=== PATIENT | male | born 1965 | race Caucasian/White ===

== ENCOUNTER 2023-08-05 13:48 | Inpatient (IN) | payer SELFPAY ==
[~2023-08-05] VITALS: Ht 188 cm; Wt 168.8 kg
[2023-08-05] MEDS ORDERED: SODIUM CHLORIDE 0.9% 1,000 ML IV ONE (13:55)
[2023-08-05] MEDS ORDERED: ACETAMINOPHEN 325 MG TAB PO ONE (14:00)
[2023-08-05] MEDS ORDERED: SODIUM CHLORIDE 0.9% 1,000 ML IV SCH (14:05)
[2023-08-05 14:06] VITALS: BP 104/67
[2023-08-05 14:18] LABS: HEMATOCRIT 42.2 % (42.0-52.0); MEAN CELL VOLUME 96.3 fl (80.0-94.0); MEAN CORPUSCULAR HGB 34.2 pg (27.0-31.0); MEAN CORPUSCULAR HGB CONC 35.5 g/dl (33.0-37.0); MEAN PLATELET VOLUME 10.9 fl (9.6-12.3); PLATELET COUNT AUTOMATED 95 10*3/uL (130-400); RED BLOOD COUNT 4.38 10*6/uL (4.50-5.90); RED CELL DISTRI WIDTH 12.2 % (0-14.5); WHITE BLOOD COUNT 10.1 10*3/uL (4.8-10.8)
[2023-08-05 14:29] LABS: MANUAL DIFF REFLEX YES
[2023-08-05 14:43] LABS: PLATELET SUFFICIENCY LOW (NORMAL); TOTAL CELLS COUNTED 100 #CELLS
[2023-08-05 14:44] LABS: BURR CELLS FEW
[2023-08-05 14:47] LABS: POTASSIUM 4.1 mmol/L (3.4-5.1)
[2023-08-05] MEDS ORDERED: INSULIN REGULAR, HUMAN 1 UNIT/0.01 ML IV ONE (15:00)
[2023-08-05] MEDS ORDERED: MAGNESIUM SULFATE 50 ML IV ONE (15:10)
[2023-08-05] MEDS ORDERED: Ceftriaxone Sodium 1 GM/10 ML SYR IV ONE (15:15)
[2023-08-05] MEDS ORDERED: Vancomycin Hydrochloride 250 ML IV ONE (15:15)
[2023-08-05] MEDS ORDERED: Piperacillin Sodium/Tazobact 100 ML IV ONE (15:30)
[2023-08-05 16:02] VITALS: BP 110/52
[2023-08-05] MEDS ORDERED: INSULIN REGULAR IN 0.9 % NACL 100 ML IV SCH (16:20)
[2023-08-05] MEDS ORDERED: Acetaminophen/Hydrocodone 5 MG/325 MG TABLET PO PRN (16:20)
[2023-08-05] MEDS ORDERED: ACETAMINOPHEN 325 MG TAB PO PRN (16:20)
[2023-08-05] MEDS ORDERED: Ondansetron Hydrochloride 4 MG/2 ML VIAL IV PRN (16:20)
[2023-08-05] MEDS ORDERED: Thiamine 200 MG/2 ML VIAL IV ONE (16:30)
[2023-08-05] MEDS ORDERED: SODIUM CHLORIDE 0.9% 500 ML IV SCH (17:15)
[2023-08-05] MEDS ORDERED: DEXTROSE 5% SALINE 0.9% 1,000 ML IV SCH (17:15)
[2023-08-05 17:30] LABS: ABG BASE EXCESS -6.1 mmol/L (-2.0-2.0); ARTERIAL BLOOD GAS PH 7.386 (7.35-7.45)
[2023-08-05 17:31] LABS: POTASSIUM 3.5 mmol/L (3.4-5.1); TOTAL PROTEIN 6.2 gm/dL (6.0-8.0)
[2023-08-05] MEDS ORDERED: Cefepime Hydrochloride 2 GM in SODIUM CHLORIDE 0.9% 50 ML IV SCH (18:00)
[2023-08-05 18:49] VITALS: BP 109/46
[2023-08-05 19:00] VITALS: BP 115/63
[2023-08-05 19:19] LABS: BILIRUBIN Negative (Negative); BLOOD 3+ (Negative); CLARITY Cloudy (Clear); COLOR Yellow (Yellow); GLUCOSE 3+ (Negative); KETONE Negative (Negative); LEUKO ESTERASE Negative (Negative); NITRITE Negative (Negative); PH 5.5 (4.5-8.0); SPECIFIC GRAVITY >= 1.030 (1.001-1.030)
[2023-08-05 19:27] LABS: URINE AMPHETAMINES Negative (1000ng/ml); URINE BARBITURATES Negative (200ng/ml); URINE BENZODIAZEPINES Negative (200ng/ml); URINE CANNABINOIDS (THC) Negative (50ng/ml); URINE COCAINE Negative (300ng/ml); URINE METHADONE Negative (300ng/ml); URINE OPIATES Negative (300ng/ml); URINE PHENCYCLIDINE Negative (25ng/ml)
[2023-08-05 19:29] LABS: BACTERIA 2+
[2023-08-05 20:00] VITALS: BP 105/52
[2023-08-05] MEDS ORDERED: SODIUM CHLORIDE 0.9% IV SCH ×2 (20:00→22:05)
[2023-08-05] MEDS ORDERED: AMPICILLIN SODIUM IV SCH (20:00)
[2023-08-05] MEDS ORDERED: METFORMIN850 MG PO (20:20)
[2023-08-05 21:00] VITALS: BP 101/51
[2023-08-05 21:20] LABS: POTASSIUM 3.3 mmol/L (3.4-5.1)
[2023-08-05] MEDS ORDERED: IBUPROFEN 400 MG TAB PO PRN (21:20)
[2023-08-05] MEDS ORDERED: POTASSIUM CHLORIDE 20 MEQ TAB PO PRN (21:30)
[2023-08-05] MEDS ORDERED: POTASSIUM CHLORIDE 20 MEQ TAB PO SCH (21:30)
[2023-08-05] MEDS ORDERED: HEPARIN SODIUM 5,000 UNIT/ML VIAL SC SCH (22:00)
[2023-08-05] MEDS ORDERED: HUMAN IV SCH (22:05)
[2023-08-05] MEDS ORDERED: INSULIN REGULAR IV SCH (22:05)
[2023-08-06] VITALS: BP 97/43
[2023-08-06 01:24] LABS: POTASSIUM 3.6 mmol/L (3.4-5.1)
[2023-08-06 04:00] VITALS: BP 108/62
[2023-08-06] MEDS ORDERED: VANCOMYCIN/WATER FOR INJ (PEG) 350 ML IV SCH (04:00)
[2023-08-06 05:32] LABS: FREE T4 0.56 ng/dl (0.89-1.76); POTASSIUM 3.9 mmol/L (3.4-5.1); TOTAL PROTEIN 6.4 gm/dL (6.0-8.0)
[2023-08-06 06:11] LABS: HEMATOCRIT 40.4 % (42.0-52.0); MEAN CELL VOLUME 97.1 fl (80.0-94.0); MEAN CORPUSCULAR HGB 33.9 pg (27.0-31.0); MEAN CORPUSCULAR HGB CONC 34.9 g/dl (33.0-37.0); MEAN PLATELET VOLUME 10.8 fl (9.6-12.3); PLATELET COUNT AUTOMATED 79 10*3/uL (130-400); RED BLOOD COUNT 4.16 10*6/uL (4.50-5.90); RED CELL DISTRI WIDTH 12.7 % (0-14.5); WHITE BLOOD COUNT 9.2 10*3/uL (4.8-10.8)
[2023-08-06 07:27] LABS: MANUAL DIFF REFLEX YES
[2023-08-06 07:35] LABS: ACANTHOCYTES FEW; BURR CELLS MODERATE; PLATELET SUFFICIENCY LOW (NORMAL); SCHISTOCYTES FEW; TOTAL CELLS COUNTED 100 #CELLS
[2023-08-06 07:36] LABS: TOXIC GRANULATION SLIGHT; VACUOLATION OF NEUTROPHILS MODERATE
[2023-08-06 08:00] VITALS: BP 110/53
[2023-08-06] MEDS ORDERED: MAGNESIUM SULFATE 50 ML IV ONE (09:20)
[2023-08-06] MEDS ORDERED: Phosphorus/Potassium 1.45 GM PACKET PO SCH (09:25)
[2023-08-06] MEDS ORDERED: ASPIRIN ENTERIC COATED 81 MG TAB PO SCH (10:00)
[2023-08-06 10:25] LABS: POTASSIUM 3.9 mmol/L (3.4-5.1)
[2023-08-06 12:00] VITALS: BP 92/57
[2023-08-06] MEDS ORDERED: DEXTROSE 10 % IN WATER 250 ML IV PRN (13:00)
[2023-08-06] MEDS ORDERED: SODIUM CHLORIDE 0.9% 1,000 ML IV ONE (15:00)
[2023-08-06 16:00] VITALS: BP 101/52
[2023-08-06] MEDS ORDERED: INSULIN LISPRO 1 UNIT/0.01 ML SQ SCH (16:30)
[2023-08-06 20:00] VITALS: BP 112/52
[2023-08-06] MEDS ORDERED: Insulin Glargine, Recombinan 1 UNIT/0.01 ML SC SCH (22:00)
[2023-08-06] MEDS ORDERED: ATORVASTATIN CALCIUM 40 MG TABLET PO SCH (22:00)
[2023-08-07] VITALS: BP 110/78
[2023-08-07] MEDS ORDERED: ALGINATE DRESSING/CME-CELL 4X4 1 EACH BANDAGE T ONE (00:38)
[2023-08-07] MEDS ORDERED: FOAM BANDAGE 5X5 T ONE (00:38)
[2023-08-07] MEDS ORDERED: LEPTOSPERMUM HONEY 0.5 OZ TUBE T ONE (00:39)
[2023-08-07 04:00] VITALS: BP 125/78
[2023-08-07 04:59] LABS: POTASSIUM 3.5 mmol/L (3.4-5.1)
[2023-08-07 06:08] LABS: HEMATOCRIT 37.5 % (42.0-52.0); MEAN CELL VOLUME 96.4 fl (80.0-94.0); MEAN CORPUSCULAR HGB 35.2 pg (27.0-31.0); MEAN CORPUSCULAR HGB CONC 36.5 g/dl (33.0-37.0); MEAN PLATELET VOLUME 12.1 fl (9.6-12.3); PLATELET COUNT AUTOMATED 77 10*3/uL (130-400); RED BLOOD COUNT 3.89 10*6/uL (4.50-5.90); RED CELL DISTRI WIDTH 13.3 % (0-14.5); WHITE BLOOD COUNT 9.4 10*3/uL (4.8-10.8)
[2023-08-07 06:09] LABS: MANUAL DIFF REFLEX YES
[2023-08-07 06:56] LABS: TOTAL CELLS COUNTED 100 #CELLS
[2023-08-07 06:57] LABS: ACANTHOCYTES FEW; BURR CELLS MODERATE; PLATELET SUFFICIENCY LOW (NORMAL)
[2023-08-07 06:58] LABS: TOXIC GRANULATION SLIGHT; VACUOLATION OF NEUTROPHILS SLIGHT
[2023-08-07 08:00] VITALS: BP 87/54
[2023-08-07] MEDS ORDERED: Thiamine 200 MG/2 ML VIAL IV SCH (10:00)
[2023-08-07] MEDS ORDERED: Metoprolol Tartrate 5 MG/5 ML VIAL IV ONE (10:50)
[2023-08-07] MEDS ORDERED: DIGOXIN 500 MCG/2 ML AMP IV ONE (11:05)
[2023-08-07] MEDS ORDERED: METOPROLOL SUCCINATE XR 25 MG TAB PO SCH (11:05)
[2023-08-07] MEDS ORDERED: POTASSIUM CHLORIDE 20 MEQ TAB PO ONE (11:05)
[2023-08-07 11:17] LABS: URINE CREATININE RANDOM 90.76 mg/dL
[2023-08-07 12:00] VITALS: BP 100/61
[2023-08-07 16:00] VITALS: BP 122/72
[2023-08-07] MEDS ORDERED: RIVAROXABAN 15 MG TAB PO SCH (18:00)
[2023-08-07 20:00] VITALS: BP 124/82
[2023-08-07] MEDS ORDERED: Insulin Glargine, Recombinan 1 UNIT/0.01 ML SC SCH (22:00)
[2023-08-08] VITALS: BP 110/71
[2023-08-08 04:00] VITALS: BP 129/86
[2023-08-08 06:34] LABS: HEMATOCRIT 40.2 % (42.0-52.0); MEAN CORPUSCULAR HGB 33.7 pg (27.0-31.0); MEAN CORPUSCULAR HGB CONC 34.1 g/dl (33.0-37.0); MEAN PLATELET VOLUME 12.6 fl (9.6-12.3); PLATELET COUNT AUTOMATED 84 10*3/uL (130-400); RED BLOOD COUNT 4.06 10*6/uL (4.50-5.90); RED CELL DISTRI WIDTH 13.2 % (0-14.5); WHITE BLOOD COUNT 11.5 10*3/uL (4.8-10.8)
[2023-08-08 06:39] LABS: MANUAL DIFF REFLEX YES
[2023-08-08 07:43] LABS: ATYPICAL LYMPHS 2 % (0-0); BURR CELLS MODERATE; PLATELET SUFFICIENCY LOW (NORMAL); POLYCHROMASIA SLIGHT; TOTAL CELLS COUNTED 100 #CELLS
[2023-08-08 08:00] VITALS: BP 121/92
[2023-08-08 12:00] VITALS: BP 121/82
[2023-08-08] MEDS ORDERED: Cefepime Hydrochloride 2 GM in SODIUM CHLORIDE 0.9% 50 ML IV SCH (14:00)
[2023-08-08 20:00] VITALS: BP 99/61
[2023-08-08 21:45] VITALS: BP 123/76
[2023-08-08] MEDS ORDERED: METOPROLOL SUCCINATE XR 25 MG TAB PO SCH (22:00)
[2023-08-09] VITALS: BP 120/79
[2023-08-09] MEDS ORDERED: SODIUM CHLORIDE 0.9% 500 ML BAG IV ONE (07:26)
[2023-08-09] MEDS ORDERED: Vancomycin Hydrochloride 1,000 MG/250 ML BAG IV ONE (07:26)
[2023-08-09] MEDS ORDERED: Vancomycin Hydrochloride 500 MG VIAL IV ONE (07:26)
[2023-08-09 08:00] VITALS: BP 117/77
[2023-08-09 09:13] LABS: HEMATOCRIT 40.3 % (42.0-52.0); MEAN CELL VOLUME 96.9 fl (80.0-94.0); MEAN CORPUSCULAR HGB 33.9 pg (27.0-31.0); MEAN PLATELET VOLUME 11.4 fl (9.6-12.3); PLATELET COUNT AUTOMATED 108 10*3/uL (130-400); RED BLOOD COUNT 4.16 10*6/uL (4.50-5.90); RED CELL DISTRI WIDTH 13.4 % (0-14.5); WHITE BLOOD COUNT 10.1 10*3/uL (4.8-10.8)
[2023-08-09 09:43] LABS: MANUAL DIFF REFLEX YES
[2023-08-09 09:58] LABS: BUN 21 mg/dl (9-23); CHLORIDE 104 mmol/L (98-107); POTASSIUM 3.5 mmol/L (3.4-5.1)
[2023-08-09 10:02] LABS: BASOPHILS 1 % (0-1); POLYCHROMASIA SLIGHT; TOTAL CELLS COUNTED 100 #CELLS; TOXIC GRANULATION SLIGHT; VACUOLATION OF NEUTROPHILS SLIGHT
[2023-08-09 10:03] LABS: BURR CELLS FEW; PLATELET SUFFICIENCY LOW (NORMAL); ROULEAUX SLIGHT
[2023-08-09 12:00] VITALS: BP 107/59
[2023-08-09] MEDS ORDERED: HUMALOG100 UNIT/1 SC (13:53)
[2023-08-09] MEDS ORDERED: ATORVASTATIN CA40 M1 PO (13:53)
[2023-08-09] MEDS ORDERED: XARELTO20 M1 PO (13:53)
[2023-08-09] MEDS ORDERED: LANTUS100 UNIT/1 SC (13:53)
[2023-08-09] MEDS ORDERED: METOPROLOL SUCC25 M2 PO (13:53)
[2023-08-09] MEDS ORDERED: OMNICEF300 MG PO (13:55)
== END 2023-08-09 17:11 | disposition home or self-care (01) | DRG 871 ==
LOC: ED 13:48 → EDHOLD 15:45 → 4E 15:45 → EDHOLD 16:25 → ICCU 17:54 → 4E 08-08 15:09
PROVIDERS: Family Medicine; Internal Medicine; Internal Medicine Nephrology; Internal Medicine Pulmonary Disease; Nurse Practitioner Family; Student in an Organized Health Care Education/Training Program; ADMIT Internal Medicine; ATTEND Internal Medicine
DX: A41.9 Sepsis, unspecified organism (principal); E11.00 Type 2 diabetes mellitus with hyperosmolarity without nonketotic hyperglycemic-hyperosmolar coma (NKHHC); E11.10 Type 2 diabetes mellitus with ketoacidosis without coma; G93.41 Metabolic encephalopathy; N17.0 Acute kidney failure with tubular necrosis; G03.9 Meningitis, unspecified; L03.115 Cellulitis of right lower limb; R47.01 Aphasia; E87.1 Hypo-osmolality and hyponatremia; N39.0 Urinary tract infection, site not specified; R65.20 Severe sepsis without septic shock; D64.9 Anemia, unspecified; E83.42 Hypomagnesemia; E87.8 Other disorders of electrolyte and fluid balance, not elsewhere classified; D69.6 Thrombocytopenia, unspecified; I48.91 Unspecified atrial fibrillation; N18.9 Chronic kidney disease, unspecified; Z82.49 Family history of ischemic heart disease and other diseases of the circulatory system

== ENCOUNTER 2023-08-29 15:37 | Emergency (ER) | payer SELFPAY ==
[~2023-08-29] VITALS: Ht 187.9 cm; Wt 149.7 kg
[~2023-08-29 15:37] MED LIST: ATORVASTATIN CA40 M1 PO; HUMALOG100 UNIT/1 SC; LANTUS100 UNIT/1 SC; METFORMIN850 MG PO; METOPROLOL SUCC25 M2 PO; OMNICEF300 MG PO; XARELTO20 M1 PO
[2023-08-29 18:20] LABS: BASO % 0.6 % (0.0-1.0); EOS # 0.2 10*3/uL (0.0-0.4); EOS % 2.6 % (1.0-4.0); HEMATOCRIT 39.2 % (42.0-52.0); LYMPH # 2.5 10*3/uL (1.3-4.4); LYMPH % 37.4 % (27.0-41.0); MEAN CELL VOLUME 98.7 fl (80.0-94.0); MEAN CORPUSCULAR HGB 33.8 pg (27.0-31.0); MEAN CORPUSCULAR HGB CONC 34.2 g/dl (33.0-37.0); MEAN PLATELET VOLUME 9.6 fl (9.6-12.3); MONO # 0.6 10*3/uL (0.1-1.0); MONO % 8.7 % (3.0-9.0); NEUT # 3.3 10*3/uL (2.3-7.9); NEUT % 50.2 % (47.0-73.0); PLATELET COUNT AUTOMATED 126 10*3/uL (130-400); RED BLOOD COUNT 3.97 10*6/uL (4.50-5.90); RED CELL DISTRI WIDTH 12.7 % (0-14.5); WHITE BLOOD COUNT 6.7 10*3/uL (4.8-10.8)
[2023-08-29 18:39] LABS: BUN 18 mg/dl (9-23); CHLORIDE 104 mmol/L (98-107)
[2023-08-29] MEDS ORDERED: INSULIN LISPRO 1 UNIT/0.01 ML SQ ONE (19:10)
[2023-08-29] MEDS ORDERED: Insulin Lispro, Recombinant 1 UNIT/0.01 ML UN SC ONE (19:10)
[2023-08-29] MEDS ORDERED: SEPTDS PO (19:32)
[2023-08-29] MEDS ORDERED: CEPHALEXIN500 M1 PO (19:32)
[2023-08-29] MEDS ORDERED: CEPHALEXIN 500 MG CAP PO ONE (19:35)
[2023-08-29] MEDS ORDERED: Sulfamethoxazole/Trimethopri 1 TAB TAB PO ONE (19:35)
== END 2023-08-29 19:48 | disposition home or self-care (01) ==
LOC: ED 15:37
PROVIDERS: Nurse Practitioner Family
DX: L03.115 Cellulitis of right lower limb (principal); E83.42 Hypomagnesemia; E11.65 Type 2 diabetes mellitus with hyperglycemia; E87.8 Other disorders of electrolyte and fluid balance, not elsewhere classified